=== PATIENT | female | born 1980 | race Caucasian/White ===

== ENCOUNTER → 2019-11-09 | Outpatient (CLI) | payer OTHER ==
[~2019-11-09] MED LIST: NOHOMEMEDICATIONS; NORCO 5-325 TA1 EACH PO; ROBAXIN 750 MG750 MG PO
== END ==
LOC: M.RAD 14:31
PROVIDERS: ATTEND Nurse Practitioner Family
DX: M25.531 Pain in right wrist (principal)

== ENCOUNTER → 2019-12-04 | Outpatient (CLI) | payer OTHER | LOC: M.MRI 07:05 | PROVIDERS: ATTEND Family Medicine | DX: M65.841 Other synovitis and tenosynovitis, right hand (principal); M77.9 Enthesopathy, unspecified ==

== ENCOUNTER 2020-11-30 16:15 | Emergency (ER) | payer OTHER ==
[~2020-11-30] VITALS: Ht 167.6 cm; Wt 99.8 kg
[2020-11-30] MEDS ORDERED: LEXAPRO20 MG PO (16:29)
[2020-11-30] MEDS ORDERED: WELLBUTRIN 100100 MG PO (16:29)
[2020-11-30] MEDS ORDERED: ZANAFLEX4 M1 PO (16:29)
[2020-11-30] MEDS ORDERED: TOPAMAX100 MG PO (16:29)
[2020-11-30] MEDS ORDERED: ZANAFLEX6 MG PO (16:29)
[2020-11-30] MEDS ORDERED: EMGALITY S120 MG/1 M IM (16:30)
[2020-11-30] MEDS ORDERED: XANAX 0.5 MG0.5 MG PO (16:30)
[2020-11-30] MEDS ORDERED: REMERON15 M2 PO (16:31)
[2020-11-30 17:01] LABS: ABSOLUTE BASOPHILS 0.1 thou/uL (0.0-0.2); ABSOLUTE EOSINOPHILS 0.1 thou/uL (0.0-0.7); ABSOLUTE LYMPHOCYTES 2.8 thou/uL (0.8-5.3); ABSOLUTE MONOCYTES 0.6 thou/uL (0.0-1.2); BASOPHILS 1.3 %; HEMATOCRIT 39.6 % (37.0-47.0); HEMOGLOBIN 13.3 gm/dL (12.0-15.0); MCH 28.7 pg (26.0-34.0); MCHC 33.6 g/dL (28.0-37.0); MCV 85.3 fL (80.0-100.0); MONOCYTES 6.3 %; MPV 7.2 fl. (7.2-11.1); NUCLEATED RBCS 0 /100WBC; PLATELET COUNT* 393 thou/uL (150-400); POLYS 62.4 %; RBC 4.65 mil/uL (4.20-5.00); RDW-CV 13.4 % (10.5-14.5); WBC 9.6 thou/uL (4.0-11.0)
[2020-11-30 17:09] LABS: CALCIUM 8.8 mg/dL (8.5-10.1); POTASSIUM 3.4 mmol/L (3.5-5.1)
[2020-11-30 17:19] LABS: ALBUMIN 3.7 g/dL (3.4-5.0); MAGNESIUM 1.9 mg/dL (1.8-2.4); TOTAL BILIRUBIN 0.3 mg/dL (<0.1-1.0); TOTAL PROTEIN 7.4 g/dL (6.4-8.2)
[2020-11-30] MEDS ORDERED: HYDROCODON-ACE1 EAC7 PO (19:00)
[2020-11-30 19:22] VITALS: BP 125/72
--- NOTE | 2020-12-01 10:48 | EKG ---
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
--- NOTE | 2020-12-01 10:50 | EKG ---
[place] [address] ELECTROCARDIOGRAM REPORT Name: VANESSA BARNES Room: 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
== END 2020-11-30 19:22 | disposition home or self-care (01) ==
LOC: M.ERS 16:15
PROVIDERS: Emergency Medicine Emergency Medical Services
DX: R07.89 Other chest pain (principal); F41.9 Anxiety disorder, unspecified; F32.9 Major depressive disorder, single episode, unspecified; G43.909 Migraine, unspecified, not intractable, without status migrainosus; Z79.899 Other long term (current) drug therapy